=== PATIENT | male | born 1975 | race Two or more races ===

== ENCOUNTER 2024-08-17 12:32 | Outpatient (RCR) | payer MEDICAID, SELFPAY ==
--- NOTE | 2024-08-17 14:46 | PT.OIERPT ---
PT OP Initial Eval Patient Information Outpatient Physical Therapy Treatment Date: 08/17/24 Visit Reasons: Low back pain Medical Diagnosis: Back Pain Treatment Dx #1: L/S Facet Syndrome Treatment Dx #2: Back Pain Start of Care: 08/17/24 Date of Onset: 1 year ago Smoking Status Smoking Status: Never smoker Initial Assessment Subjective: Pt is a 49 y/o male reports of chronic back pain on the left side. Pt denies of numbness or pain down the legs. Pt has limitation with sitting, standing, chores, work duties, lifting, bending, and performing recreational activities. Objective: L/S AROM: all motions are WFL except pain with end range extension and left sidebend Hip PROM: all motions are WFL Hip MMTs: grossly 3+/5 Special Test (+) elizabeth Palpation: TTP and hypomobile left L4 facets Assessment: Pt demonstrate back pain consistent with lumbar facet syndrome leading to difficulty with ADLs. Pt will attempt physical therapy if pain persist Pt will be refer back to provider for further consultation Short Term and Correction Goals 1) Increase L/S AROM WNL in 6 wks to be able to perform chores 2) Decrease back pain to 2/10 in 6 wks to be able to sit and stand more than 30 mins 3) Increase core strength WFL in 6 wks to be able to perform recreational activities 4) Increase hip MMTs grossly to 4-/5 in 6 wks to be able to walk more than 30 mins 5) Indep with HEP Treatment Plan 1) Manual Therapy 2) Therapeutic Activities 3) Therapeutic Exercises 4) Modalities (ice, heat) Frequency and Duration: 2 x wk for 6 wks Certification Dates: 08/17/24 to 11/17/24 Procedure Charges OP PT Eval Mod Complex 30 minutes: Yes
== END 2024-08-26 23:59 | disposition home or self-care (01) ==
LOC: CPTX 12:32
PROVIDERS: PCP Nurse Practitioner Family; Referring Provider Nurse Practitioner Family; Visit Provider Nurse Practitioner Family
DX: M54.50 Low back pain, unspecified (principal); G89.29 Other chronic pain
CPT/HCPCS: 97162

== ENCOUNTER 2024-09-11 16:00 | Outpatient (RCR) | payer MEDICAID, SELFPAY ==
--- NOTE | 2024-08-31 16:33 | PT.ODAYNRPT ---
PT Outpatient Daily Note OP Daily Note Outpatient Physical Therapy Treatment Date: 08/31/24 Visit Reasons: LOW BACK PAIN Subjective: Pt c/o LBP, more so on L side. Objective: Please see flow sheet for ther ex list. Assessment: Performed STM to L/s, pt tolerated well. Plan: Continue with POC. Length of Time (minutes) of Treatment: 30 Minutes Procedure Charges Therapeutic Exercise 30 minutes: Yes
--- NOTE | 2024-09-11 16:26 | PT.ODAYNRPT ---
PT Outpatient Daily Note OP Daily Note Outpatient Physical Therapy Treatment Date: 09/11/24 Visit Reasons: LOW BACK PAIN Subjective: Pt reports back is feeling a little better. Objective: Please see flow sheet for ther ex list. Assessment: Added interventions completed with good tolerance. Plan: Continue with POC. Length of Time (minutes) of Treatment: 30 Minutes Procedure Charges Therapeutic Exercise 30 minutes: Yes
== END 2024-09-26 23:59 | disposition home or self-care (01) ==
LOC: CPTX 16:00
PROVIDERS: PCP Nurse Practitioner Family; Referring Provider Nurse Practitioner Family; Visit Provider Nurse Practitioner Family
DX: M54.50 Low back pain, unspecified (principal); G89.29 Other chronic pain
CPT/HCPCS: 97110

== ENCOUNTER 2024-10-27 15:00 | Outpatient (RCR) | payer MEDICAID, SELFPAY ==
--- NOTE | 2024-10-18 16:02 | PT.ODAYNRPT ---
PT Outpatient Daily Note OP Daily Note Outpatient Physical Therapy Treatment Date: 10/18/24 Visit Reasons: Low back pain Subjective: Pt reports low back feels the same, reports sharp stabbing pain. Objective: Please see flow sheet for ther ex list. Assessment: Pt instructed on repeated lumbar extension exercise, no replicated symptoms pt encouraged to perform exercise for HEP. Plan: Assess response to HEP. Length of Time (minutes) of Treatment: 30 Minutes Procedure Charges Therapeutic Exercise 30 minutes: Yes
--- NOTE | 2024-10-25 16:06 | PT.ODAYNRPT ---
PT Outpatient Daily Note OP Daily Note Outpatient Physical Therapy Treatment Date: 10/25/24 Visit Reasons: Low back pain Subjective: Pt's back is about the same and continues to have pain on the left side. Pt hasn't been back to therapy due to insurance auth. Objective: Please see flow chart for list of ther ex performed Assessment: improved L4 facet mobility post joint mob + STM. Plan: Continue with PT Length of Time (minutes) of Treatment: 30 Minutes Procedure Charges Therapeutic Exercise 30 minutes: Yes
--- NOTE | 2024-10-27 15:40 | PT.ODAYNRPT ---
PT Outpatient Daily Note OP Daily Note Outpatient Physical Therapy Treatment Date: 10/27/24 Visit Reasons: Low back pain Subjective: Pt's back is the same no change in pain. Pt likes the heat. Objective: Please see flow chart for list of ther ex performed Assessment: tolerate exercises with minimal pain; no change in overall back symptoms post PT session Plan: Continue with PT Length of Time (minutes) of Treatment: 30 Minutes Procedure Charges Therapeutic Exercise 30 minutes: Yes
== END 2024-10-27 23:59 | disposition home or self-care (01) ==
LOC: CPTX 15:00
PROVIDERS: PCP Nurse Practitioner Family; Referring Provider Nurse Practitioner Family; Visit Provider Nurse Practitioner Family
DX: M54.50 Low back pain, unspecified (principal); G89.29 Other chronic pain; M47.896 Other spondylosis, lumbar region
CPT/HCPCS: 97110

== ENCOUNTER 2024-11-02 14:48 | Outpatient (RCR) | payer MEDICAID, SELFPAY ==
--- NOTE | 2024-11-02 15:06 | PT.ODS1RPT ---
PT OP Progress/Discharge Note Date of Service: 11/02/24 Progress Note/DC Note Progress Note/Discharge Note: DC Note Patient Information Visit Reasons: Low back pain Medical Diagnosis: Back Pain Treatment Dx #1: L/S Facet Syndrome Service Continue Service or Discharge: Discharge Discharge Date: 11/02/24 Status Subjective: Pt's back continues to hurt with minimal progress with physical therapy. Most of patient's pain is on the left side. Lately He's notice some pain down the leg. Pt has limitation with sitting, standing, chores, work duties, and performing recreational activities. Objective: L/S AROM: all motions are WFL with end range pain into extension Hip PROM: all motions are WFL Hip MMTs: grossly 3+/5 Assessment: Pt continues to have back pain leading to difficulty with ADLs. Pt will no longer benefit from physical therapy due to minimal progress with goals. Recommend patient to follow up with provider for further consultation. Pt was instructed on HEP last session and educated to continue exercises to maintain overall mobility. Pt performed all exercises safely, thank you for your referrals. Plan: D/C home with HEP and follow up with MD Further imaging per MD's discrection Procedure Charges Therapeutic Exercise 30 minutes: Yes
== END 2024-11-24 23:59 | disposition home or self-care (01) ==
LOC: CPTX 14:48
PROVIDERS: PCP Nurse Practitioner Family; Referring Provider Nurse Practitioner Family; Visit Provider Nurse Practitioner Family
DX: M54.50 Low back pain, unspecified (principal); G89.29 Other chronic pain; M47.896 Other spondylosis, lumbar region
CPT/HCPCS: 97110